=== PATIENT | male | born 1945 | race Caucasian/White ===

== ENCOUNTER 2016-11-24 21:46 | Emergency (ER) | payer MEDICARE, OTHER ==
[2016-11-24] MEDS: DIAZEPAM 5 MG TABLET PO ONE (22:13)
[2016-11-24] MEDS: HYDROCODONE/APAP 7.5/325MG TABLET PO ONE (22:14)
--- NOTE | 2016-11-24 22:16 | Emergency Department Record ---
History of Present Illness - General Chief Complaint: Back Pain/Injury Stated Complaint: BACK PAIN Time Seen by Provider: 11/24/16 21:49 Source: Patient Mode of Arrival: Wheelchair Limitations: No limitations - History of Present Illness Initial Comments: 71 yo male presents to ED with a CC of right sided low back pain radiating into the right hip and down the right lower extremity. Patient denies specific injury, but does reports sitting a stool for prolonged period of time sanding a piece of wood, was attempting to stand when his pain symptoms began. Patient denies pain at rest, but describes sharp pain with attempting to stand. Patient denies lower extremity weakness, groin numbness, or urinary retention symptoms. Patient reports that he did not take anything for pain prior to arrival. Onset/Timin -: Hour(s) Place: Home Radiation: Buttocks Severity scale (1-10): 8 Quality: Sharp, Stabbing Consistency: Intermittent Improves With: Immobilization Worsens With: Movement Context: Bending Associated Symptoms: Difficulty walking - Related Data Previous Rx's Medication Instructions Recorded Diazepam [Valium] 5 mg PO Q8H PRN #15 tab 11/24/16 Naproxen [Naprosyn] 500 mg PO Q12H #20 tablet 11/24/16 Allergies Allergy/AdvReac Type Severity Reaction Status Date / Time morphine AdvReac NAUSEA AND Verified 07/14/15 23:06 VOMITING Travel Screening - Travel/Exposure Within Last 30 Days Have you traveled within the last 30 days?: No Review of Systems Constitutional: Denies: Chills, Fever, Malaise, Night sweats Eyes: Denies: Eye discharge, Eye pain ENT: Denies: Congestion, Ear pain, Epistaxis Respiratory: Denies: Cough, Dyspnea Cardiovascular: Denies: Chest pain, Dyspnea on exertion Endocrine: Denies: Fatigue, Heat or cold intolerance Gastrointestinal: Denies: Abdominal pain, Nausea, Vomiting Genitourinary: Denies: Incontinence, Retention Musculoskeletal: Reports: Back pain. Denies: Arthralgia, Gout, Joint swelling Skin: Denies: Bruising, Change in color Neurological: Denies: Abnormal gait, Confusion, Headache, Seizure Psychiatric: Denies: Anxiety Hematological/Lymphatic: Denies: Anemia, Blood Clots Past Medical History - SOCIAL HISTORY Smoking Status: Never smoker Alcohol Use: None Drug Use: None - RESPIRATORY Hx Respiratory Disorders: Yes Hx Sleep Apnea: Yes Hx of CPAP: Yes - CARDIOVASCULAR Hx Cardio Disorders: No - NEURO Hx Neuro Disorders: No - GI Hx GI Disorders: No - Hx Genitourinary Disorders: No - ENDOCRINE Hx Endocrine Disorders: No - MUSCULOSKELETAL Hx Musculoskeletal Disorders: No - PSYCH Hx Psych Problems: No - HEMATOLOGY/ONCOLOGY Hx Hematology/Oncology Disorders: No Family Medical History Any Significant Family History?: Yes Hx Cancer: Mother *Cancer Comment: Breast and Brain Hx Diabetes: Father Physical Exam - General General Appearance: Alert, Oriented x3, Cooperative, Moderate distress Limitations: No limitations - Head Head exam: Atraumatic, Normocephalic, Normal inspection Head exam detail: negative: Abrasion, Contusion, Calloway's sign, General tenderness, Hematoma, Laceration - Eye Eye exam: Normal appearance. negative: Conjunctival injection, Periorbital swelling, Periorbital tenderness, Scleral icterus - ENT Ear exam: negative: Auricular hematoma, Auricular trauma Nasal Exam: negative: Active bleeding, Discharge, Dried blood, Foreign body Mouth exam: negative: Drooling, Laceration, Muffled voice, Tongue elevation - Neck Neck exam: Normal inspection. negative: Meningismus, Tenderness - Respiratory Respiratory exam: Normal lung sounds bilaterally. negative: Rales, Respiratory distress, Rhonchi, Stridor - Cardiovascular Cardiovascular Exam: Regular rate, Normal rhythm, Normal heart sounds - GI/Abdominal GI/Abdominal exam: Soft. negative: Rebound, Rigid, Tenderness - Rectal Rectal exam: Deferred - exam: Deferred - Extremities Extremities exam: Normal inspection. negative: Pedal edema, Tenderness - Back Back exam: Reports: Paraspinal tenderness (Right SI joint region). Denies: CVA tenderness (R), CVA tenderness (L) - Neurological Neurological exam: Alert, Oriented X3. negative: Motor sensory deficit - Psychiatric Psychiatric exam: Normal affect, Normal mood - Skin Skin exam: Normal color. negative: Abrasion Type of lesion: negative: abrasion Course Vital Signs 11/24/16 21:59 Temperature 97.6 F Pulse Rate [ 68 Pulse Ox Probe] Respiratory 18 Rate Blood Pressure 151/82 [Left Arm] Pulse Ox 95 - Reevaluation(s) Reevaluation #1: 11/24/16 22:40 L-Spine: Multi-level DDD, most pronounced at L2-L3. Nothing acute. Reevaluation #2: 11/24/16 22:49 Patient reassessed and reports that his symptoms are improved, states "I almost fell asleep in x-ray, that medication is starting to work". Patient appears stable for discharge at this time. Disposition Disposition: Discharge Clinical Impression: Acute low back pain Qualifiers: Back pain laterality: right Sciatica presence: with sciatica Sciatica laterality: sciatica of right side Qualified Code(s): M54.41 - Lumbago with sciatica, right side Disposition: Home, Self-Care Condition: (2) Stable Instructions: Sciatica (ED) Additional Instructions: Return to ED if your symptoms worsen or if you have any concerns. Follow-up with your family doctor in 3-5 days as directed. Valium and Naprosyn as directed. Prescriptions: Diazepam [Valium] 5 mg PO Q8H PRN #15 tab PRN Reason: Pain - Moderate (5-7) Naproxen [Naprosyn] 500 mg PO Q12H #20 tablet Forms: Patient Portal Access Time of Disposition: 22:16 Quality - Quality Measures Quality Measures: N/A - Blood Pressure Screening Does Patient Have Any of the Following: No Blood Pressure Classification: Pre-Hypertensive BP Reading Systolic Measurement: 151 Diastolic Measurement: 82 Screening for High Blood Pressure: < Pre-Hypertensive BP, F/U Documented > [ [id number]] Pre-Hypertensive Follow-up Interventions: Referral to alternative/primary care provider.
--- NOTE | 2016-11-27 07:48 | RADIOLOGY REPORT ---
EXAM: LUMBAR SPINE, THREE VIEWS HISTORY: ACUTE RIGHT LOWER BACK PAIN. TECHNIQUE: Three views of the lumbar spine were obtained. Comparison: None. FINDINGS: Five lumbar segments with anatomic alignment. Moderate degenerative disk disease at L2-L3 manifested by loss of stature as well as end plate osteophytes. No fracture or subluxation. At least mild facet arthropathy in the lower lumbar spine. IMPRESSION: MULTILEVEL DEGENERATIVE CHANGE OF THE LUMBAR SPINE. NO ACUTE PROCESS IDENTIFIED. JOB NUMBER: [id number] MTDD
== END 2016-11-24 23:03 | disposition home or self-care (01) ==
LOC: ER 21:46
DX: M54.41 Lumbago with sciatica, right side (principal)
CPT/HCPCS: 99283 ×2; 72100; J3490